=== PATIENT | female | born 1945 | race Caucasian/White ===

== ENCOUNTER 2019-02-25 06:59 | Day surgery (SDC) | payer MEDICARE, OTHER, SELFPAY ==
--- NOTE | 2019-02-21 09:48 | PM.PREOP ---
Pre-operative Note Interval Note History & Physical reviewed/Exam performed by Physician: Yes Changes to H&P: No
--- NOTE | 2019-02-21 09:49 | P.OP_ITS ---
Operative Date/Time/Diagnoses Date of procedure: 02/25/19 Time of procedure: 07:45 Procedure & Clinicians Procedure: Preoperative diagnoses: 1. Right signficant bruenescent nuclear sclerotic and cortical cataract. Postoperative diagnoses: 1. Cataract removed by phacoemulsification with placement of posterior chamber intraocular lens. Procedure: Phacoemulsification with posterior chamber intraocular lens implant Surgeon: Dianna Crawley MD Complications: None Specimen: None Implant: ZCBOO+21.0 Blood loss: None Anesthesia: Retrobulbar with monitored standby Description of procedure: Patient presents with a complaint of decreased vision due to cataract which is affecting activities of daily living. The patient wants surgery to improve vision. The patient was taken to the operating room and given IV sedation. A retrobulbar block insert consisting of 6 cc of 2% xylocaine without epinephrine mixed half and half with 0.5% Marcaine with 1 cc of hyaluronidase added is placed between the medial and lateral 1/3 of the inferior orbital rim. Lid akinesia is obtain with 1% xylocaine with epinephrine infiltrated along the lid margin. The eye is manually massaged for 30 sec, prepped using Betadine solution, and draped in the usual sterile fashion. Temporal approach was made, a 1 mm side-port incision was made 90? from the proposed clear corneal incision position. Phenylephrine 1.5% mixed with 1% xylocaine 0.2 cc was placed into the anterior chamber. Viscoat followed by Aidan was then placed. A 2.6 mm clear incision with a 2.6 mm blade was placed. A 360 degree capsulorrhexis style capsulotomy was then performed with a cystitome needle on a Healon. Hydrodelineation and hydrodissection were performed. The phacoemulsification unit is introduced, and sculpting notice used to groove the central lens. It is then removed in chopping mode. Epi nucleus is removed with epinuclear mode and irrigation aspiration was used to remove the peripheral cortex. The posterior capsule is polished. The intraocular lens is selected, inspected, power confirmed, and placed in the posterior chamber. The pupil was constricted with Miostat.. The wound was stromally hydrated and tested for leaks, there was none and it was left sutureless. Vigamox 0.1 cc was placed into the anterior chamber. Kenalog 0.2 cc was placed in the superior subconjunctival space. A drop of antibiotic and was placed and the eye was patched and shielded. The patient was stable and returned to the recovery room in excellent condition. Dictated by: Dianna Crawley MD Copy to: [facility]
[2019-02-25 07:15] VITALS: BP 119/59; PULSE 61; RESP 15; TEMP 36.4; O2SAT 98
[2019-02-25 07:17] VITALS: BMI 22.6
[2019-02-25] MEDS: PROPARACAINE 0.5% OPHTH SOL 2 DROPS EYE-OP (07:25)
[2019-02-25] MEDS: CATARACT EYE COMPOUND (10 DROPS/SYRINGE) 3 DROPS EYE-OP (07:27)
--- NOTE | 2019-02-25 07:56 | SUR.OPER ---
Supine on eye stretcher, head on extension cradle secured with tape. Arms tucked at sides with blanket. Pillow under knees.
[2019-02-25] MEDS: LIDOCAINE 2% 4 ML, BUPIVACAINE 0.5% (PF) 4 ML, HYALURONIDASE 150 UNIT INJ (08:00)
[2019-02-25] MEDS: LIDOCAINE 1% W/EPI INJ 20 ML INJ (08:08)
[2019-02-25] MEDS: MOXIFLOXACIN OPHTH DROPS 3 ML BOTTLE 2 DROPS INJ ×2 (08:09→08:10)
[2019-02-25] MEDS: TRIAMCINOLONE 50 MG/5 ML VIAL INJ (08:10)
[2019-02-25] MEDS: HYALURONATE SODIUM 10 MG/ML SYRINGE INJ (08:11)
[2019-02-25] MEDS: CHONDROIDTIN/SOD HYALURONATE 1.05 ML SYRINGE INTRAOCULA ×2 (08:11)
[2019-02-25] MEDS: NEOMYCIN/POLY/DEX OPHTH OINT 1 APPLIC EYE-RIGHT (08:12)
[2019-02-25] MEDS: CARBACHOL 1.5 ML VIAL INJ (08:12)
[2019-02-25] MEDS: OFLOXACIN 0.3% OPHTH 5 ML 2 DROPS EYE-RIGHT (08:13)
[2019-02-25] MEDS: BALANCED SALT IRRIG SOLN NO.2 500 ML, EPINEPHrine 1 MG IRR (08:13)
[2019-02-25] MEDS: PHENYLEPHRINE/LIDOCAINE VIAL (OR) 0.2 ML EYE-OP (08:30)
[2019-02-25 08:38] VITALS: BP 117/71; PULSE 56; RESP 15; TEMP 36.3; O2SAT 100
== END 2019-02-25 08:50 | disposition home or self-care (01) ==
LOC: OR 07:02
PROVIDERS: PCP Family Medicine; Visit Provider Ophthalmology
DX: H25.811 Combined forms of age-related cataract, right eye (principal)
CPT/HCPCS: J0171; J2704; J3301; J3470

== ENCOUNTER 2019-03-04 09:33 | Day surgery (SDC) | payer MEDICARE, OTHER, SELFPAY ==
--- NOTE | 2019-02-26 17:07 | PM.PREOP ---
Pre-operative Note Interval Note History & Physical reviewed/Exam performed by Physician: Yes Changes to H&P: No
--- NOTE | 2019-03-04 08:13 | PM.OP.1 ---
Operative Date/Time/Diagnoses Date of procedure: 03/04/19 Time of procedure: 10:45 Procedure & Clinicians Procedure: Preoperative diagnoses: 1. Left nuclear sclerotic and cortical cataract. Postoperative diagnoses: 1. Cataract removed by phacoemulsification with placement of posterior chamber intraocular lens. Procedure: Phacoemulsification with posterior chamber intraocular lens implant Surgeon: Dianna Crawley MD Complications: None Specimen: None Implant: ZCBOO+21.5 Blood loss: None Anesthesia: Retrobulbar with monitored standby Description of procedure: Patient presents with a complaint of decreased vision due to cataract which is affecting activities of daily living. The patient wants surgery to improve vision. The patient was taken to the operating room and given IV sedation. A retrobulbar block consisting of 6 cc of 2% xylocaine without epinephrine mixed half and half with 0.5% Marcaine with 1 cc of hyaluronidase added is placed between the medial and lateral 1/3 of the inferior orbital rim. Lid akinesia is obtain with 1% xylocaine with epinephrine infiltrated along the lid margin. The eye is manually massaged for 30 sec, prepped using Betadine solution, and draped in the usual sterile fashion. Temporal approach was made, a 1 mm side-port incision was made 90? from the proposed clear corneal incision position. Phenylephrine 1.5% mixed with 1% xylocaine 0.2 cc was placed into the anterior chamber. Viscoat followed by Aidan was then placed. A 2.6 mm clear incision with a 2.6 mm blade was placed. A 360 degree capsulorrhexis style capsulotomy was then performed with a cystitome needle on a Healon. Hydrodelineation and hydrodissection were performed. The phacoemulsification unit is introduced, and sculpting notice used to groove the central lens. It is then removed in chopping mode. Epi nucleus is removed with epinuclear mode and irrigation aspiration was used to remove the peripheral cortex. The posterior capsule is polished. The intraocular lens is selected, inspected, power confirmed, and placed in the posterior chamber. The pupil was constricted with Miostat.. The wound was stromally hydrated and tested for leaks, there was none and it was left sutureless. Vigamox 0.1 cc was placed into the anterior chamber. Kenalog 0.2 cc was placed in the superior subconjunctival space. A drop of antibiotic and was placed and the eye was patched and shielded. The patient was stable and returned to the recovery room in excellent condition. Dictated by: Dianna Crawley MD Copy to: [facility]
[2019-03-04] MEDS: PROPARACAINE 0.5% OPHTH SOL 2 DROPS EYE-OP (10:00)
[2019-03-04 10:01] VITALS: BP 127/67; PULSE 61; RESP 16; TEMP 37; O2SAT 99; BMI 22.8
[2019-03-04] MEDS: CATARACT EYE COMPOUND (10 DROPS/SYRINGE) 3 DROPS EYE-OP (10:02)
[2019-03-04] MEDS: CARBACHOL 1.5 ML VIAL INJ (11:13)
[2019-03-04] MEDS: BALANCED SALT IRRIG SOLN NO.2 15 ML IRR (11:13)
[2019-03-04] MEDS: HYALURONATE SODIUM 10 MG/ML SYRINGE INJ (11:14)
[2019-03-04] MEDS: LIDOCAINE 1% W/EPI INJ 20 ML INJ (11:14)
[2019-03-04] MEDS: CHONDROIDTIN/SOD HYALURONATE 1.05 ML SYRINGE INTRAOCULA (11:14)
[2019-03-04] MEDS: MOXIFLOXACIN OPHTH DROPS 3 ML BOTTLE 2 DROPS INJ (11:14)
[2019-03-04] MEDS: PHENYLEPHRINE/LIDOCAINE VIAL (OR) 0.2 ML EYE-OP (11:15)
[2019-03-04] MEDS: NEOMYCIN/POLY/DEX OPHTH OINT 1 APPLIC EYE-LEFT (11:15)
[2019-03-04] MEDS: OFLOXACIN 0.3% OPHTH 5 ML 2 DROPS EYE-LEFT (11:15)
[2019-03-04] MEDS: BALANCED SALT IRRIG SOLN NO.2 500 ML, EPINEPHrine 1 MG IRR (11:16)
[2019-03-04] MEDS: TRIAMCINOLONE 50 MG/5 ML VIAL INJ (11:16)
[2019-03-04] MEDS: LIDOCAINE 2% 4 ML, BUPIVACAINE 0.5% (PF) 4 ML, HYALURONIDASE 150 UNIT INJ (11:17)
[2019-03-04 11:53] VITALS: BP 139/80; PULSE 60; RESP 16; TEMP 36.8; O2SAT 100
== END 2019-03-04 12:04 | disposition home or self-care (01) ==
LOC: OR 09:37
PROVIDERS: PCP Family Medicine; Visit Provider Ophthalmology
DX: H25.812 Combined forms of age-related cataract, left eye (principal)
CPT/HCPCS: J0171; J2704; J3301; J3470

== ENCOUNTER → 2019-03-13 12:25 | Outpatient (CLI) | payer MEDICARE, OTHER, SELFPAY ==
--- NOTE | 2019-03-13 | DI.MG.S_ITS ---
BILATERAL DIGITAL SCREENING MAMMOGRAM 3D/2D WITH CAD: 03/13/2019 CLINICAL: Routine screening. Family history of breast cancer. Comparison is made to exams dated: 12/24/2017 mammogram, 10/23/2016 mammogram, and 09/06/2015 mammogram - [facility]. There are scattered fibroglandular elements in both breasts. Current study was also evaluated with a Computer Aided Detection (CAD) system. There are benign calcifications in both breasts. No significant masses, calcifications, or other findings are seen in either breast. There has been no significant interval change. IMPRESSION: There is no mammographic evidence of malignancy. A 1 year screening mammogram is recommended. This exam was interpreted at Station ID: [id number]. NOTE: For mammograms, a report in lay terms will be sent to the patient. Approximately 15% of breast malignancies will not be visualized mammographically. In the management of a palpable breast mass, a negative mammogram must not discourage biopsy of a clinically suspicious lesion. Electronically Signed By: Isaac gandhi/ethel:03/13/2019 13:01:08 copy to: SONYA SHAFFER letter sent: Normal Exam ACR BI-RADS Category 2: Benign Finding(s) [id number]
== END ==
PROVIDERS: PCP Family Medicine
DX: Z12.31 Encounter for screening mammogram for malignant neoplasm of breast (principal); Z80.3 Family history of malignant neoplasm of breast
CPT/HCPCS: 77063; 77067

== ENCOUNTER → 2019-08-13 14:15 | Outpatient (CLI) | payer MEDICARE, OTHER, SELFPAY | PROVIDERS: PCP Family Medicine | DX: Z13.820 Encounter for screening for osteoporosis (principal); M85.851 Other specified disorders of bone density and structure, right thigh; Z78.0 Asymptomatic menopausal state | CPT/HCPCS: 77080 ==

== ENCOUNTER → 2019-11-27 15:35 | Outpatient (CLI) | payer MEDICARE, OTHER, SELFPAY ==
[2019-11-27 16:21] LABS: Influenza A - CEPHEID Flu A NEGATIVE (NEGATIVE); Influenza B - CEPHEID Flu B NEGATIVE (NEGATIVE)
== END ==
PROVIDERS: PCP Student in an Organized Health Care Education/Training Program; Visit Provider Family Medicine
DX: R50.9 Fever, unspecified (principal)
CPT/HCPCS: 87502

== ENCOUNTER 2019-11-29 08:45 | Emergency (ER) | payer MEDICARE, OTHER, SELFPAY ==
[2019-11-29 09:07] VITALS: BP 114/65; PULSE 86; RESP 18; TEMP 37; O2SAT 96; BMI 22.2
--- NOTE | 2019-11-29 11:10 | DI.RAD.S_ITS ---
PROCEDURE: XR CHEST 2V INDICATIONS: r/o pneumonia TECHNIQUE: 2 views of the chest were acquired. COMPARISON: None. FINDINGS: Surgical changes and devices: None. Lungs and pleura: There is an area of consolidation identified on the lateral aspect of the left lung base, which is positioned posteriorly. Scarring within the lung apices is present. No large effusion or pneumothorax is identified. No overt heart failure. Mediastinum: Mediastinal contours are normal. Heart size is normal. There may be a calcified lymph node within the left hilum. Bones and chest wall: No suspicious bony abnormalities. Soft tissues appear unremarkable. IMPRESSION: Left basilar consolidation likely represents pneumonia. However, followup imaging in 3-4 weeks is recommended to document complete resolution and exclude an underlying mass. Dictated by: Chilo Wilcox M.D. on 11/29/2019 at 10:24 Approved by: Chilo Wilcox M.D. on 11/29/2019 at 10:25
[2019-11-29 11:21] LABS: Add Manual Diff / Slide Review NO; Basophils Absolute Auto 0 /uL (0-100); Basophils Percent Auto 0.2 % (0-2); Eosinophils Absolute Auto 0 /uL (0-450); Hematocrit 40.2 % (36-46); Hemoglobin 13.9 g/dL (12.0-16.0); Lymphocytes Absolute Auto 600 /uL (1100-4500); Lymphocytes Percent Auto 8.4 % (25-40); Mean Corpuscular HGB Conc 34.7 % (30-36); Mean Corpuscular Hemoglobin 31.6 PG (26-34); Monocytes Absolute Auto 400 /uL (0-900); Monocytes Percent Auto 5.4 % (3-14); Neutrophils Absolute Auto 6400 /uL (1500-7000); Platelet Count 191 X10^3/uL (150-400); Red Blood Cell Count 4.41 X10^6/uL (4.0-5.2); Red Cell Distribution Width 12.6 % (11.6-14.8); White Blood Cell Count 7.4 X10^3/uL (4.5-11.0)
[2019-11-29 11:23] VITALS: TEMP 37.9
[2019-11-29] MEDS: SODIUM CHLORIDE 0.9% 1,000 ML 1000 ML IV (11:23)
[2019-11-29] MEDS: ACETAMINOPHEN 325 MG TABLET 650 MG PO (11:23)
[2019-11-29 11:28] LABS: Blood Urea Nitrogen 9 mg/dL (7-17); Calcium 9.1 mg/dL (8.4-10.2); Carbon Dioxide 27 mmol/L (22-32); Chloride 94 mmol/L (98-107); Estimated Glomerular Filt Rate > 60.0 mL/min (>60); Glucose 125 mg/dL (80-110); HEMOLYSIS < 15 (0-50); Lactate (Lactic Acid) 0.9 mmol/L (0.7-2.1); Potassium 3.4 mmol/L (3.4-5.1); Sodium 130 mmol/L (137-145)
[2019-11-29] MEDS: KETOROLAC 60 MG/2 ML VIAL 30 MG IV (11:54)
--- NOTE | 2019-11-29 11:54 | ED_ITS ---
HPI - Fever <MORGAN Marte-BC - Last Filed: 11/29/19 16:10> General Chief Complaint: Fever Stated Complaint: fever, tested neg for flu Time Seen by Provider: 11/29/19 11:03 Source: patient and family Mode of arrival: Ambulatory Limitations: no limitations History of Present Illness HPI Narrative: The patient is a 74-year-old nonsmoker who drinks 3 or more drinks of wine per day who presents with her for chief complaint of fever. She saw a primary care provider on the and tested negative for the flu. She states she started feeling sick on the with cough and congestion. She states since her appointment 2 days ago she has had fevers up to 102, muscle aches, chills, fevers, malaise. She denies any nausea vomiting or abdominal pain. She denies any sore throat or ear pain. She complains of postnasal drip and congestion. Home modalities to feel better include Tylenol, NeilMed sinus rinse or Neti pot, Mucinex DM, rifq-xll-gvffozq measures. She is concerned that she might have pneumonia. She states she is sleeping a lot at home. Related Data Previous Rx's Medication Instructions Recorded amoxicillin-pot clavulanate 1 tab PO BID #14 tab 11/29/19 [Augmentin] benzonatate [Tessalon Perles] 100 mg PO BID-TID PRN #20 cap 11/29/19 doxycycline hyclate 100 mg PO BID #14 cap 11/29/19 Allergies Allergy/AdvReac Type Severity Reaction Status Date / Time No Known Drug Allergies Allergy Verified 11/27/19 15:25 Review of Systems <RODNEY Marte - Last Filed: 11/29/19 16:10> Review of Systems Narrative: GENERAL: see HPI HEENT: See HPI RESPIRATORY: See HPI CARDIOVASCULAR: Denies chest pain, palpitations, orthopnea, edema, GASTROINTESTINAL: Denies nausea, vomiting, abdominal pain, diarrhea, constipation, melena. : Denies dysuria, frequency, incontinence, hematuria, urinary retention. MUSCULOSKELETAL: denies weakness, joint pain, or bony pain SKIN: Denies rash, skin lesions, or other NEUROLOGIC: Denies weakness, headache, numbness, change in speech, confusion, seizures, incoordination. PSYCHIATRIC: No concerning psychosocial issues. 12 point review of systems is negative except for those stated above Patient History <ROD Marte - Last Filed: 11/29/19 16:10> Medical History (Updated 11/29/19 @ 13:05 by ROD Marte) Cough (Acute) Flu-like symptoms (Acute) Surgical History Status post hysterectomy Social History household members: spouse Smoking Status: Never smoker Smoking Status: Never smoker alcohol intake frequency: 3 or more drinks per day Alcohol type: wine Substance Use Type: does not use Exam <ROD Marte - Last Filed: 11/29/19 16:10> Narrative Exam Narrative: GENERAL: This is a well-nourished, well-developed patient, lying on stretcher wearing mass HEAD: Atraumatic. Normocephalic. No temporal or scalp tenderness. EYES: Pupils equal round and reactive. Extraocular motions intact. No scleral icterus. No injection or drainage. ENT: Nose without bleeding, purulent drainage or septal hematoma. Throat without erythema, tonsillar hypertrophy or exudate. Uvula midline. Airway patent. NECK: Trachea midline. No JVD or lymphadenopathy. Supple, nontender, no men ingeal signs. CARDIOVASCULAR: Regular rate and rhythm RESPIRATORY: Left lower posterior crackles to auscultation. Loose sounding cough throughout exam. Speaking full sentences. Not tri podding, no increased respiratory effort. Accessory muscle use. GASTROINTESTINAL: Abdomen soft, non-tender, nondistended. No hepato- splenomegaly, or palpable masses. No guarding. Active bowel sounds all 4 quad rants. EXTREMITIES: No clubbing, cyanosis, or edema. No joint tenderness, effusion, or edema noted. BACK: Nontender without deformity or crepitance. No flank tenderness. NEURO: AOx3. SKIN: No rash or erythema on visible skin Initial Vital Signs Initial Vital Signs: Vital Signs Temperature 98.6 F 11/29/19 09:07 Pulse Rate 86 11/29/19 09:07 Respiratory Rate 18 11/29/19 09:07 Blood Pressure 114/65 11/29/19 09:07 Pulse Oximetry 96 11/29/19 09:07 <Nila Maya MD - Last Filed: 11/29/19 18:54> Initial Vital Signs Initial Vital Signs: Vital Signs Temperature 98.6 F 11/29/19 09:07 Pulse Rate 86 11/29/19 09:07 Respiratory Rate 18 11/29/19 09:07 Blood Pressure 114/65 11/29/19 09:07 Pulse Oximetry 96 11/29/19 09:07 Scores <ROD Marte - Last Filed: 11/29/19 16:10> CURB-65 Confusion: No BUN >19mg/dL (>7mmol/L): No Respiratory rate greater or equal to 30: No SBP <90mmHg or DBP less or equal to 60mmHg: No Age 65 or Older: Yes CURB-65 Total: 1 Score 0-1 Outpatient care, Score 2 Inpt vs. Obs, Score 3 or over Inpt admit with ICU for score of 4-5 GCS Jose coma scale eye opening: Spontaneous Jose coma scale verbal response: Orientated [place] coma scale motor response: Obey commands [place] coma scale total score: 15 Course <ROD Marte - Last Filed: 11/29/19 16:10> Orders Ordered: ED Orders 11/29/19 11:07 Basic Metabolic Panel Stat Complete Blood Count AUTO DIFF Stat Lactate (Lactic Acid) Stat 11/29/19 11:10 XR chest 2V Stat 11/29/19 11:18 Procalcitonin Stat 11/29/19 11:41 RT Consult Eval and Treat NOW 11/29/19 12:01 Sputum Culture Stat 11/29/19 12:55 Blood Culture Stat Discontinued Medications Acetaminophen (Tylenol) 650 mg PO NOW ONE Stop: 11/29/19 11:15 Last Admin: 11/29/19 11:23 Dose: 650 mg Documented by: BASIL Amoxicillin/Clavulanate Potassium (Augmentin 875-125 Mg) 1 tab PO NOW ONE Stop: 11/29/19 12:39 Last Admin: 11/29/19 12:44 Dose: 1 tab Documented by: ROSALE Benzonatate (Tessalon Perles) 100 mg PO NOW ONE Stop: 11/29/19 12:39 Last Admin: 11/29/19 12:45 Dose: 100 mg Documented by: BASIL Doxycycline Hyclate (Vibramycin) 100 mg PO NOW ONE Stop: 11/29/19 12:39 Last Admin: 11/29/19 12:44 Dose: 100 mg Documented by: BASIL Sodium Chloride (Normal Saline 0.9%) 1,000 mls @ 1,000 mls/hr IV BOLUS ONE Stop: 11/29/19 12:13 Last Infusion: 11/29/19 12:16 Dose: 0 mls/hr Documented by: Admin: 11/29/19 11:23 Dose: 1,000 mls/hr Documented by: BASIL Ketorolac Tromethamine (Toradol) 30 mg IV NOW ONE Stop: 11/29/19 11:49 Last Admin: 11/29/19 11:54 Dose: 30 mg Documented by: BASIL Consultations Consultation #1: Respiratory therapist at bedside doing eval and treat, since the spirometer teaching Time: 11:54 Vital Signs Vital signs: Vital Signs - 8 hr 11/29/19 11:23 11/29/19 12:07 11/29/19 12:09 Temperature 100.2 F H 101.7 F H Pulse Rate 91 H 73 Respiratory Rate 16 14 Blood Pressure [Left Arm] 100/57 L Pulse Oximetry 97 98 11/29/19 12:16 11/29/19 12:17 Temperature 101.7 F H 101.7 F H Pulse Rate Respiratory Rate Blood Pressure [Left Arm] Pulse Oximetry <Nila Maya MD - Last Filed: 11/29/19 18:54> Orders Ordered: ED Orders 11/29/19 11:07 Basic Metabolic Panel Stat Complete Blood Count AUTO DIFF Stat Lactate (Lactic Acid) Stat 11/29/19 11:10 XR chest 2V Stat 11/29/19 11:18 Procalcitonin Stat 11/29/19 11:41 RT Consult Eval and Treat NOW 11/29/19 12:01 Sputum Culture Stat 11/29/19 12:55 Blood Culture Stat Discontinued Medications Acetaminophen (Tylenol) 650 mg PO NOW ONE Stop: 11/29/19 11:15 Last Admin: 11/29/19 11:23 Dose: 650 mg Documented by: BASIL Amoxicillin/Clavulanate Potassium (Augmentin 875-125 Mg) 1 tab PO NOW ONE Stop: 11/29/19 12:39 Last Admin: 11/29/19 12:44 Dose: 1 tab Documented by: BASIL Benzonatate (Tessalon Perles) 100 mg PO NOW ONE Stop: 11/29/19 12:39 Last Admin: 11/29/19 12:45 Dose: 100 mg Documented by: BASIL Doxycycline Hyclate (Vibramycin) 100 mg PO NOW ONE Stop: 11/29/19 12:39 Last Admin: 11/29/19 12:44 Dose: 100 mg Documented by: BASIL Sodium Chloride (Normal Saline 0.9%) 1,000 mls @ 1,000 mls/hr IV BOLUS ONE Stop: 11/29/19 12:13 Last Infusion: 11/29/19 12:16 Dose: 0 mls/hr Documented by: Admin: 11/29/19 11:23 Dose: 1,000 mls/hr Documented by: BASIL Ketorolac Tromethamine (Toradol) 30 mg IV NOW ONE Stop: 11/29/19 11:49 Last Admin: 11/29/19 11:54 Dose: 30 mg Documented by: BASIL Vital Signs Vital signs: Vital Signs - 8 hr 11/29/19 11:23 11/29/19 12:07 11/29/19 12:09 Temperature 100.2 F H 101.7 F H Pulse Rate 91 H 73 Respiratory Rate 16 14 Blood Pressure [Left Arm] 100/57 L Pulse Oximetry 97 98 11/29/19 12:16 11/29/19 12:17 Temperature 101.7 F H 101.7 F H Pulse Rate Respiratory Rate Blood Pressure [Left Arm] Pulse Oximetry MDM - Fever <NUNO MarteP-BC - Last Filed: 11/29/19 16:10> Lab Data Result diagrams: 11/29/19 11:07 11/29/19 11:07 Labs: Lab Results 11/29/19 11/29/19 11/29/19 Range/Units 11:07 11:07 11:07 WBC 7.4 (4.5-11.0) X10^3/uL RBC 4.41 (4.0-5.2) X10^6/uL Hgb 13.9 (12.0-16.0) g/dL Hct 40.2 (36-46) % MCV 91.0 (80-100) fL MCH 31.6 (26-34) PG MCHC 34.7 (30-36) % RDW 12.6 (11.6-14.8) % Plt Count 191 (150-400) X10^3/uL Neut % (Auto) 86.0 H (50-75) % Lymph % (Auto) 8.4 L (25-40) % [place] % (Auto) 5.4 (3-14) % Eos % (Auto) 0.0 L (2-4) % Baso % (Auto) 0.2 (0-2) % Neut # (Auto) 6400 (8673-0380) /uL Lymph # (Auto) 600 L (6705-1345) /uL [place] # (Auto) 400 (0-900) /uL Eos # (Auto) 0 (0-450) /uL Baso # (Auto) 0 (0-100) /uL Sodium 130 L (137-145) mmol/L Potassium 3.4 (3.4-5.1) mmol/L Chloride 94 L (98-107) mmol/L Carbon Dioxide 27 (22-32) mmol/L BUN 9 (7-17) mg/dL Creatinine 0.50 L (0.52-1.04) mg/dL Estimated GFR > 60.0 (>60) mL/min BUN/Creatinine Ratio 18.0 (6-22) Glucose 125 H (80-110) mg/dL Lactate 0.9 (0.7-2.1) mmol/L Calcium 9.1 (8.4-10.2) mg/dL Procalcitonin (<0.5) ng/mL 11/29/19 Range/Units 11:18 WBC (4.5-11.0) X10^3/uL RBC (4.0-5.2) X10^6/uL Hgb (12.0-16.0) g/dL Hct (36-46) % MCV (80-100) fL MCH (26-34) PG MCHC (30-36) % RDW (11.6-14.8) % Plt Count (150-400) X10^3/uL Neut % (Auto) (50-75) % Lymph % (Auto) (25-40) % [place] % (Auto) (3-14) % Eos % (Auto) (2-4) % Baso % (Auto) (0-2) % Neut # (Auto) (7627-9238) /uL Lymph # (Auto) (7682-4637) /uL [place] # (Auto) (0-900) /uL Eos # (Auto) (0-450) /uL Baso # (Auto) (0-100) /uL Sodium (137-145) mmol/L Potassium (3.4-5.1) mmol/L Chloride (98-107) mmol/L Carbon Dioxide (22-32) mmol/L BUN (7-17) mg/dL Creatinine (0.52-1.04) mg/dL Estimated GFR (>60) mL/min BUN/Creatinine Ratio (6-22) Glucose (80-110) mg/dL Lactate (0.7-2.1) mmol/L Calcium (8.4-10.2) mg/dL Procalcitonin 0.12 (<0.5) ng/mL Imaging Data Chest x-ray: Radiologist's Impression: [address] [address] XRay Report Signed Patient: Viri Villareal JMR#: [id number] : 7Acct:[id number] Age/Sex: 74 / FDate of Service: 11/29/19 Loc: ED Accession Number: [id number] Procedure: XR chest 2V Ordering Provider: Barbara Gordon PROCEDURE: XR CHEST 2V INDICATIONS: r/o pneumonia TECHNIQUE: 2 views of the chest were acquired. COMPARISON: None. FINDINGS: Surgical changes and devices: None. Lungs and pleura: There is an area of consolidation identified on the lateral aspect of the left lung base, which is positioned posteriorly. Scarring within the lung apices is present. No large effusion or pneumothorax is identified. No overt heart failure. Mediastinum: Mediastinal contours are normal. Heart size is normal. There may be a calcified lymph node within the left hilum. Bones and chest wall: No suspicious bony abnormalities. Soft tissues appear unremarkable. IMPRESSION: Left basilar consolidation likely represents pneumonia. However, followup imaging in 3-4 weeks is recommended to document complete resolution and exclude an underlying mass. Dictated by: Chilo Wilcox M.D. on 11/29/2019 at 10:24 Approved by: Chilo Wilcox M.D. on 11/29/2019 at 10:25 MDM Narrative Medical decision making narrative: The patient is a 74-year-old female who presents with a chief complaint of continued cough and congestion. She has been sick for 10 days, saw primary care provider on the . X-ray is concerning for left basilar pneumonia. She does not need admission as per curb 65 criteria. She was placed on Augmentin and doxycycline as per up-to-date community-acquired pneumonia algorithm. Discussed at length taking it with probiotic or yogurt, using a sunscreen with doxycycline. Discussed at length the importance of follow-up with primary care provider in the next few days. Also give prescription of Tessalon Perles. Discussed at length return precau tions of increased shortness of breath etc.. Patient was able to tolerate 1st dose of antibiotics well in the emergency department. Patient has been of no questions or concerns upon discharge and state understanding of return precautions as well as follow-up care. <Nila Maya MD - Last Filed: 11/29/19 18:54> Lab Data Labs: Lab Results 11/29/19 11/29/19 11/29/19 Range/Units 11:07 11:07 11:07 WBC 7.4 (4.5-11.0) X10^3/uL RBC 4.41 (4.0-5.2) X10^6/uL Hgb 13.9 (12.0-16.0) g/dL Hct 40.2 (36-46) % MCV 91.0 (80-100) fL MCH 31.6 (26-34) PG MCHC 34.7 (30-36) % RDW 12.6 (11.6-14.8) % Plt Count 191 (150-400) X10^3/uL Neut % (Auto) 86.0 H (50-75) % Lymph % (Auto) 8.4 L (25-40) % [place] % (Auto) 5.4 (3-14) % Eos % (Auto) 0.0 L (2-4) % Baso % (Auto) 0.2 (0-2) % Neut # (Auto) 6400 (7070-6914) /uL Lymph # (Auto) 600 L (8477-4884) /uL [place] # (Auto) 400 (0-900) /uL Eos # (Auto) 0 (0-450) /uL Baso # (Auto) 0 (0-100) /uL Sodium 130 L (137-145) mmol/L Potassium 3.4 (3.4-5.1) mmol/L Chloride 94 L (98-107) mmol/L Carbon Dioxide 27 (22-32) mmol/L BUN 9 (7-17) mg/dL Creatinine 0.50 L (0.52-1.04) mg/dL Estimated GFR > 60.0 (>60) mL/min BUN/Creatinine Ratio 18.0 (6-22) Glucose 125 H (80-110) mg/dL Lactate 0.9 (0.7-2.1) mmol/L Calcium 9.1 (8.4-10.2) mg/dL Procalcitonin (<0.5) ng/mL 11/29/19 Range/Units 11:18 WBC (4.5-11.0) X10^3/uL RBC (4.0-5.2) X10^6/uL Hgb (12.0-16.0) g/dL Hct (36-46) % MCV (80-100) fL MCH (26-34) PG MCHC (30-36) % RDW (11.6-14.8) % Plt Count (150-400) X10^3/uL Neut % (Auto) (50-75) % Lymph % (Auto) (25-40) % [place] % (Auto) (3-14) % Eos % (Auto) (2-4) % Baso % (Auto) (0-2) % Neut # (Auto) (6523-4847) /uL Lymph # (Auto) (0002-2252) /uL [place] # (Auto) (0-900) /uL Eos # (Auto) (0-450) /uL Baso # (Auto) (0-100) /uL Sodium (137-145) mmol/L Potassium (3.4-5.1) mmol/L Chloride (98-107) mmol/L Carbon Dioxide (22-32) mmol/L BUN (7-17) mg/dL Creatinine (0.52-1.04) mg/dL Estimated GFR (>60) mL/min BUN/Creatinine Ratio (6-22) Glucose (80-110) mg/dL Lactate (0.7-2.1) mmol/L Calcium (8.4-10.2) mg/dL Procalcitonin 0.12 (<0.5) ng/mL Discharge Plan Departure Patient Disposition: Home Clinical Impression: Pneumonia Qualifiers: Pneumonia type: due to unspecified organism Laterality: left Lung location: lower lobe of lung Qualified Code(s): J18.9 - Pneumonia, unspecified organism Discharge Date/Time: 11/29/19 13:09 Instructions: How to Use an Incentive Spirometer, DI for Pneumonia -- Adult, DI for Fever (Symptom) -- Adult Activity Restrictions/Additional Instructions: Today we found that you have pneumonia. I have sent prescriptions of 2 di fferent antibiotics to [facility] in [place]. I also sent a prescription of Tessalon Perles to help with cough. Please use the incentive spirometer in breathing instructions provided by respiratory therapist. Please rest and push fluids. Use [id number] medications as needed and able. Please come back to the emergency department for any acute concerns such as severe shortness of breath Please follow-up with primary care provider the next few days. Prescriptions: New doxycycline hyclate 100 mg capsule 100 mg PO BID Qty: 14 RF: 0 amoxicillin-pot clavulanate [Augmentin] 875-125 mg tablet 1 tab PO BID Qty: 14 RF: 0 benzonatate [Tessalon Perles] 100 mg capsule 100 mg PO BID-TID PRN (Reason: cough) Qty: 20 RF: 0 Referrals: Fantasma Briones MD [Primary Care Provider] -
[2019-11-29 12:02] LABS: Procalcitonin 0.12 ng/mL (<0.5)
[2019-11-29 12:07] VITALS: BP 100/57; PULSE 91; RESP 16; TEMP 38.7; O2SAT 97
[2019-11-29 12:09] VITALS: PULSE 73; RESP 14; O2SAT 98
[2019-11-29 12:16] VITALS: TEMP 38.7
[2019-11-29 12:17] VITALS: TEMP 38.7
[2019-11-29] MEDS: DOXYCYCLINE HYCLATE 100 MG TABLET PO (12:44)
[2019-11-29] MEDS: AMOXICILLIN/CLAV 875/125 MG 1 TAB PO (12:44)
[2019-11-29] MEDS: BENZONATATE 100 MG CAPSULE PO (12:45)
== END 2019-11-29 13:09 | disposition home or self-care (01) ==
PROVIDERS: Emergency Provider Nurse Practitioner Family; PCP Student in an Organized Health Care Education/Training Program
DX: J18.9 Pneumonia, unspecified organism (principal)
CPT/HCPCS: 36415; 71046; 80048; 83605; 84145; 85025; 87040; 87070; 87205; 96361; 96374; 99284; 99285; J1885

== ENCOUNTER → 2020-05-09 08:40 | Outpatient (CLI) | payer MEDICARE, OTHER, SELFPAY ==
--- NOTE | 2020-05-09 | DI.MG.S_ITS ---
BILATERAL DIGITAL SCREENING MAMMOGRAM 3D/2D WITH CAD WITH AXILLARY TAIL ADDITIONAL VIEWS: 05/09/2020 CLINICAL: Routine screening. Family history of breast cancer. Comparison is made to exams dated: 03/13/2019 mammogram, 12/24/2017 mammogram, 10/23/2016 mammogram, 09/06/2015 mammogram, 08/24/2014 mammogram, and 08/19/2013 mammogram - [facility]. The tissue of both breasts is heterogeneously dense. This may lower the sensitivity of mammography. Current study was also evaluated with a Computer Aided Detection (CAD) system. There are benign calcifications in both breasts. No significant masses, calcifications, or other findings are seen in either breast. There has been no significant interval change. IMPRESSION: There is no mammographic evidence of malignancy. A 1 year screening mammogram is recommended. This exam was interpreted at Station ID: [id number]. NOTE: For mammograms, a report in lay terms will be sent to the patient. Approximately 15% of breast malignancies will not be visualized mammographically. In the management of a palpable breast mass, a negative mammogram must not discourage biopsy of a clinically suspicious lesion. Electronically Signed By: Dean enriquez/tehel:05/09/2020 09:03:26 copy to: Fantasma Medel letter sent: Normal Exam ACR BI-RADS Category 2: Benign Finding(s) [id number]
== END ==
PROVIDERS: PCP Student in an Organized Health Care Education/Training Program
DX: Z12.31 Encounter for screening mammogram for malignant neoplasm of breast (principal); Z80.3 Family history of malignant neoplasm of breast
CPT/HCPCS: 77063; 77067

== ENCOUNTER → 2020-05-30 08:10 | Outpatient (CLI) | payer MEDICARE, OTHER, SELFPAY ==
[2020-05-30 09:43] LABS: Add Manual Diff / Slide Review NO; Basophils Absolute Auto 0 /uL (0-100); Basophils Percent Auto 0.5 % (0-2); Eosinophils Absolute Auto 300 /uL (0-450); Eosinophils Percent Auto 5.1 % (2-4); Hematocrit 39.6 % (36-46); Hemoglobin 13.3 g/dL (12.0-16.0); Lymphocytes Absolute Auto 2000 /uL (1100-4500); Mean Corpuscular HGB Conc 33.5 % (30-36); Mean Corpuscular Hemoglobin 31.7 PG (26-34); Mean Corpuscular Volume 94.7 fL (80-100); Monocytes Absolute Auto 600 /uL (0-900); Monocytes Percent Auto 10.4 % (3-14); Neutrophils Absolute Auto 2600 /uL (1500-7000); Platelet Count 228 X10^3/uL (150-400); Red Blood Cell Count 4.19 X10^6/uL (4.0-5.2); Red Cell Distribution Width 13.2 % (11.6-14.8); White Blood Cell Count 5.5 X10^3/uL (4.5-11.0)
[2020-05-30 10:08] LABS: Carbon Dioxide 30 mmol/L (22-32); Chloride 102 mmol/L (98-107); HEMOLYSIS < 15 (0-50); Potassium 4.2 mmol/L (3.4-5.1); Sodium 136 mmol/L (137-145)
== END ==
PROVIDERS: PCP Student in an Organized Health Care Education/Training Program; Referring Provider Orthopaedic Surgery; Visit Provider Orthopaedic Surgery
DX: Z01.818 Encounter for other preprocedural examination (principal); Z01.812 Encounter for preprocedural laboratory examination
CPT/HCPCS: 36415; 80051; 85025; 93005; 93010

== ENCOUNTER → 2020-06-19 11:22 | Outpatient (CLI) | payer MEDICARE, OTHER, SELFPAY ==
[2020-06-20 20:28] LABS: COVID19 Sendout Not Detected (Not Detect)
== END ==
PROVIDERS: PCP Student in an Organized Health Care Education/Training Program; Visit Provider Nurse Practitioner
DX: Z11.59 Encounter for screening for other viral diseases (principal)
CPT/HCPCS: 87635

== ENCOUNTER 2020-06-22 07:50 | Day surgery (SDC) | payer MEDICARE, OTHER, SELFPAY ==
[2020-06-09 08:13] VITALS: BMI 22.2
[2020-06-22] VITALS (12 sets, daily range): BP systolic 102–153; BP diastolic 44–89; PULSE 57–89; RESP 13–18; TEMP 36–37.4; O2SAT 95–100; BMI 22.2
--- NOTE | 2020-06-22 | DI.RAD.S_ITS ---
PROCEDURE: XR KNEE RT 1TO2V INDICATIONS: POST OP TECHNIQUE: 2 view(s) of the knee acquired. COMPARISON: [facility] [place], CR, XR KNEE ARTHRITIC SERIES RT, 03/30/2019, 15:32. FINDINGS: Bones: Patient is status post knee joint arthroplasty. Hardware components are in expected positions. Visualized bony structures are intact. Soft tissues: Overlying postoperative changes are noted. IMPRESSION: Expected postsurgical change for right knee arthroplasty. Dictated by: Margo Humphrey MD, PhD on 06/22/2020 at 10:57 Approved by: Margo Humphrey MD, PhD on 06/22/2020 at 10:58
[2020-06-22] MEDS: LACTATED RINGERS 1,000 ML 42 ML IV (08:25)
--- NOTE | 2020-06-22 08:40 | PM.PREOP ---
Pre-operative Note COVID-19 COVID-19 status: Negative Result date/Date tested (Pos, Neg/Pending): 06/19/20 Interval Note History & Physical reviewed/Exam performed by Physician: Yes Changes to H&P: No
--- NOTE | 2020-06-22 08:45 | P.OP_ITS ---
Operative Date/Time/Diagnoses Date of procedure: 06/22/20 Pre-op diagnosis: Right knee osteoarthritis Post-op diagnosis: same Procedure & Clinicians Procedure: Right total knee arthroplasty Same procedure as scheduled: Yes Indications: The patient presents today for total knee arthroplasty after failure of conservative treatment. The nature of the procedure including the risks and benefits, alternatives, postoperative course and expected outcome were discussed and all questions answered. Consent was obtained. Operative site confirmed and marked. Surgeon: Papito Tellez Corporate Travel Expert: Rayo Gilliam Operative Notes Prosthetic devices, grafts, tissues, transplants, or devices: Jason Persona TKA 9 CR femoral component, E stemmed tibial component, 10 MC polyethylene tray and 32 mm all poly patella. Procedure in detail: The patient was taken to the operative suite and placed under anesthesia. The patient was given prophylactic antibiotics prior to surgery. The patient was also given tranexamic acid, 1 g, just prior to surgery for postoperative hemostasis. The lateral knee was prepped and the joint injected with 20 mL of 1% Lidocaine with epinephrine. The knee was then prepped and draped in usual sterile fashion. The leg was exsanguinated with an Esmarch dressing and the tourniquet raised to 250 torr. A 15 cm anterior incision was made. Next a medial trivector arthrotomy was made. The extensor mechanism was marked to ensure accurate repair. Initial exposing dissection was carried out medially and laterally. The knee was then flexed and the intramedullary femoral guide kishan placed. The distal femoral cut was made in 5? of valgus at the +2 position. The femoral size was measured and the appropriate cutting block was then placed and the anterior, posterior and chamfer cuts made. The intramedullary tibial alignment kishan was then placed. The guide was set to remove approximately 8 mm from the less affected medial side. The proximal tibial cut was then made with an oscillating saw. All meniscus and bony debris was then removed. Posterior femoral osteophytes removed with a curved osteotome. Flexion extension gaps were checked. The knee was slightly tight laterally as expected from her alignment. This was corrected releasing the lateral capsule with a pie crust technique using a 15 blade. The soft tissues were then injected with a combination of 20 mL of half percent Marcaine with epinephrine and 20 mL of Exparel. The trial components were then placed. The knee was then extended and the patellar thickness was measured and a cut made removing approximately 9 mm of bone. The patella was then sized and drilled. Some excess lateral bone was excised and the patellofemoral ligament released. The knee went into full extension and flexion beyond 130?. There was excellent medial-lateral balance throughout motion. Patellar tracking was excellent. The trial components were removed and the knee was cleansed with Pulsavac irrigation and dried. The final components were cemented with high viscosity vacuum mixed bone cement with antibiotics. The joint was filled with a dilute Betadine solution. The knee was held in extension and the patellar clamped until the cement was adequately cured. The knee was then irrigated. The extensor mechanism was closed with 5 interrupted #1 Vicryl sutures and a running Quill suture at approximately 90 degrees of flexion. The joint was then injected with a combination of 1 g of tranexamic acid and 20 mL of quarter percent Marcaine with epinephrine. The subcutaneous tissue was closed with 2 0 Vicryl. The skin was closed with absorbable subcuticular sutures and surgical adhesive. An Aquacel dressing and Stephen wrap were then applied. The patient tolerated the procedure well and was returned to recovery room in good condition. Post-operative Plan for aftercare: [facility] Protocol.
[2020-06-22] MEDS: CEFAZOLIN 2 GM/100 ML FROZ.PIGGY IV ×2 (08:56→17:25)
[2020-06-22] MEDS: LIDOCAINE 1% W/EPI 20 ML INJ (09:00)
[2020-06-22] MEDS: TRANEXAMIC ACID 1,000 MG VIAL 1000 MG IV (09:05)
--- NOTE | 2020-06-22 09:19 | SUR.OPER ---
Supine on padded OR bed. Pillow under head, arms secured on padded armboards <90 degree abduction. Safety belt across torso. Non-operative leg secured with tape over blanket over lower leg. Operative leg secured in DeMayo/Mathew positioner. Foam padded brace at thigh of operative leg.
[2020-06-22] MEDS: ACETAMINOPHEN IV 1,000 MG/100 ML VIAL 400 MG IV (09:25)
[2020-06-22] MEDS: BUPIVACAINE 0.25% W/ EPI (PF) 40 ML, BUPIVACAINE LIPOSOME 266 MG, SODIUM CHLORIDE 0.9% ... INJ (09:55)
[2020-06-22] MEDS: SODIUM CHLORIDE IRRIG SOLUTION 250 ML, POVIDONE-IODINE SPONGE STICKS 1 APPLIC IRR (09:56)
[2020-06-22] MEDS: BUPIVACAINE 0.25% W/ EPI (PF) 20 ML, TRANEXAMIC ACID 1,000 MG, SODIUM CHLORIDE 0.9% 10 ML INJ (09:59)
--- NOTE | 2020-06-22 10:57 | SUR.PHASEI ---
Stable PACU stay report to Carolyne, pt left in stable condition with dileep neal. Bed low locked, call stahl in reach. O2 added via nasal cannula as pt became sleepy but easily arousable.
[2020-06-22] MEDS: LACTATED RINGERS 1,000 ML 100 ML IV ×2 (12:36→21:04)
[2020-06-22] MEDS: IBUPROFEN 400 MG TABLET PO ×3 (12:36→21:05)
[2020-06-22] MEDS: OXYCODONE IR 5 MG TABLET PO (12:36)
[2020-06-22] MEDS: HYDROMORPHONE 0.5 MG INJ 0.2 MG IV (13:26)
--- NOTE | 2020-06-22 13:50 | PT.IPTN ---
Current Diagnoses Unilateral primary osteoarthritis, right knee (06/22/20) Surgery Performed Operation Date: 06/22/20 08:45 Actual Procedures p Total Knee Arthroplasty(Right) - Papito Tellez MD Physical Therapy Treatment Note M3 PT-IP Subjective Start: 06/22/20 14:01 Freq: NEEDED Status: Active Protocol: Document 06/22/20 13:50 AB (Rec: 06/22/20 14:05 AB [id number]) Subjective Physical Therapy Visit Type Type Patient Refusal Notes attempted PT eval. Pt c/o 6/ 10 pain and nurse stated that pt is still in a lot of pain and pain meds was given already. pt stated that she does not want to miss PT but is just having a lot of pain and is feeling shaky at this time. obtained PLOF and home set up from pt and spouse. post-op folder also provided. will f/u tomorrow. pt agreed to do PT tomorrow.
[2020-06-22] MEDS: ACETAMINOPHEN 325 MG TABLET 650 MG PO ×2 (14:28→21:04)
[2020-06-22] MEDS: HYDROMORPHONE 2 MG TABLET PO ×3 (14:28→22:43)
--- NOTE | 2020-06-22 15:35 | PT.IIE ---
Current Diagnoses Unilateral primary osteoarthritis, right knee (06/22/20) Surgery Performed Operation Date: 06/22/20 08:45 Actual Procedures p Total Knee Arthroplasty(Right) - Papito Tellez MD Surgical History (Last Updated 06/09/20 @ 08:24 by Shana Betancourt RN) History of arthroplasty of left knee (Acute 2012) History of colonoscopy (Acute) Hx of bilateral cataract extraction (Acute 02/2019) Status post hysterectomy Medical History (Last Updated 06/09/20 @ 08:24 by Shana Betancourt RN) Arthritis (Acute) Bacterial lobar pneumonia (Acute 11/2019) Hearing impaired (Acute) Ocular migraine (Acute) Physical Therapy Inpatient Evaluation/Re-Eval M1 PT/OT-IP Prior Functional Status Start: 06/22/20 14:01 Freq: NEEDED Status: Active Protocol: Document 06/22/20 15:35 AB (Rec: 06/22/20 16:47 AB [email or web address]) Medical Review Prior Functional Status Medical History Reviewed Yes Communication able to make needs known Mobility and Gait pt stated that she is independent with all mobilities and ambulation without AD Social History Household Members spouse Living Arrangements House Number of Floors (Floors) Two Floors Number of Stairs To Enter/Railing? pt will stay on main level of the house with hospital bed; has 16 steps to bedroom level with L rail ascending has a ramp to enter Home Environment Standard Height Toilet,Walk in Shower,Ramp Home Equipment Front Wheel Walker,Straight Cane,Raised Toilet Seat Without Armrests,Shower Seat without Backrest,Hand Held Shower,Hospital Bed M2 PT-IP Current Condition Start: 06/22/20 14:01 Freq: NEEDED Status: Active Protocol: Document 06/22/20 15:35 AB (Rec: 06/22/20 16:47 AB [email or web address]) Physical Therapy Current Condition Current Condition Evaluation Date 06/22/20 Treatment Diagnosis s/p R TKA; difficulty in walking Onset Date 06/22/20 Weight Bearing Status Weight Bearing Status Weight Bear as Tolerated Allowed Weight Bearing Amount (enter % RLE WBAT or #) (%) M3 PT-IP Subjective Start: 06/22/20 14:01 Freq: NEEDED Status: Active Protocol: Document 06/22/20 15:35 AB (Rec: 06/22/20 16:47 AB [email or web address]) Subjective Physical Therapy Visit Type Type Initial Evaluation Visit Start Time 15:35 Visit Stop Time 16:11 Total Visit Minutes 36 Number of AUDIO VIDEO TECH Visits 0 Physical Therapy Visit Comments Patient Comments requesting to use the toilet Therapy Pain Assessment Pain When Pain Assessed At Rest Pain Present Pain Present Pain Reported Location Right Knee Intensity 3 Scale Used Numeric (0 - 10) Pain Management Techniques Apply Cold,Distraction, Modification of Treatment,Re- positioning,Timing of Activity with Medications M4 PT-IP Mobility and Gait Start: 06/22/20 14:01 Freq: NEEDED Status: Active Protocol: Document 06/22/20 15:35 AB (Rec: 06/22/20 16:47 AB [id number]) PT-Bed Mobility Assessment Supine to Sit Supine to Sit Standby Assistance Sit to Supine Sit to Supine Standby Assistance Scooting Scooting to Edge of Bed Standby Assistance PT-Transfer Assessment Sit to and From Stand Sit to and from Stand Minimal Assistance,1 Person Assistance,Use of Upper Extremities Equipment Transfer Assistive Device Gait Belt,Front Wheeled Walker Orthotic/Prosthetic Devices or Brace: No Transfers Transfer Destination Bedside Commode Transfer Technique Stand Step Pivot Transfer Ability Level of Assist Minimal Assistance,1 Person Assistance,Use of Upper Extremities Comments Mobility Comments BP: 131/69 . completed supine to sit SBA and was able to sit on EOB SBA. completed sit to stand min A and cues for R quads activation. completed step transfer to bedside commode min A using FWW. pt was able to do hygiene care sitting with set up. completed sit to stand from bedside commode min A and ambulated ~ 3 ft using FWW min A and stated that she has to sit down due to feeling very shaky. pt gets easily anxious and confirmed and pt stated that she gets shaky due to anxiety and when she is afraid . pt wanted to just go back to bed. completed sit to supine SBA. positioned on the bed. call light and table placed within reach. informed pt and spouse regarding needed skids on posterior legs of walker and options. spouse stated that he can put tennis ball on it. Gait Assessment Gait Gait Assistance Required: Minimum Assistance Distance (Feet) 3 Able to Maintain Weight Bearing Status Yes During Gait Assistive Devices Assistive Device Gait Belt,Front Wheeled Walker Orthotic/Prosthetic Devices or Brace: No Gait Deviations General Gait Pattern Antalgic,Step-to Gait Factors Limiting Gait Function Factors Limiting Gait Function Decreased Activity Tolerance, Decreased Strength,Limited Range of Motion,Pain,Poor Balance,Poor Safety Awareness PT-Balance Assessment Sitting Balance and Reactions Static Sitting Balance Ability Good Dynamic Sitting Balance Ability Good Standing Balance and Reactions Static Standing Balance Ability Fair Dynamic Standing Balance Ability Fair Device Used FWW M5 PT-IP Objective Assessments Start: 06/22/20 14:01 Freq: NEEDED Status: Active Protocol: Document 06/22/20 15:35 AB (Rec: 06/22/20 16:47 AB [email or web address]) Orientation Orientation/Cognition Level of Alertness Alert Orientation Name,Place,Situation Memory Description No Deficits Noted Gross Range of Motion Lower Extremity ROM Assessment Right Impaired Impairments R knee flexion: ~ 60 deg Strength Lower Extremity Strength Assessment Right Impaired Hip 4-/5 Knee 3+/5 Coordination Assessment Gross Coordination Gross Coordination WNL Sensation Assessment Sensation Gross Sensation WNL Muscle Tone Muscle Tone WNL Yes M6 PT-IP Treatment Start: 06/22/20 14:01 Freq: NEEDED Status: Active Protocol: Document 06/22/20 15:35 AB (Rec: 06/22/20 16:47 AB [email or web address]) Physical Therapy Treatment Exercises Exercises Heel Slides Education Education Provided Precautions,Weight Bearing Status,Post-Op Packet,Safety M7 PT-IP Assessment and Plan Start: 06/22/20 14:01 Freq: NEEDED Status: Active Protocol: Document 06/22/20 15:35 AB (Rec: 06/22/20 16:47 AB [email or web address]) PT Summary Assessment and Plan Potential Rehabilitation Potential Good Status of Condition at Evaluation Evolving Summary Impairments Pain,ROM,Strength,Balance, Coordination,Sensation,Tone, Cognition,Bed Mobility, Transfers,Gait,Activity Tolerance Assessment Summary pt requiring min A with mobility but with decrease activity tolerance. pt just had surgery this morning and will likely progress during hospital stay. pt plans to go home with spouse to assist her and is set up for outpt PT . pt plans to stay on main level of the house and has a ramp to enter but spouse stated that it might be a good idea to see if pt can do stairs. informed pt that we' ll see how she feels tomorrow and if she wants to do stairs and she is appropriate, PT will assist pt with stair climbing training. pt agreed. will continue to assess pt's progress. Goals Bed Mobility Goal Independent Transfer Goal Independent,Front Wheeled Walker Gait Goal Independent,Front Wheel Walker Gait Distance 200 Other Goals up/down 16 steps L rail SBA Days to Meet Goals 5 Frequency of Treatment Frequency Of Treatment Twice a Day Treatment Plan Physical Therapy Treatment Plan Bed Mobility Training,Transfer Training,Gait Training, Therapeutic Exercise,Balance Retraining,Post Op Education, Discharge Planning,Hot or Cold Pack,Neuromuscular Re-ed, Coordination Retraining,Manual Therapy Recommendations To Nursing Amount of Assist Needed 1 Person Assist Discharge Recommendations PT Discharge Recommendations Home with Assistance, Outpatient PT Transportation Needs at Discharge Private Vehicle
--- NOTE | 2020-06-22 16:16 | PC.NURSE ---
Addendum entered by Dori Pandey R.N. 06/22/20 21:51: Incentive spirometry encouraged and pt reminded of use and rationale for use. Addendum entered by Dori Pandey R.N. 06/22/20 21:49: Mostly sleeping, but when awake is wide awake. Assist x 2 to commode to void. No longer tremulous. Reports pain to right knee 2-3/10. Requests to be awoken for pain meds @ 2230. Spouse rooming in on cot by window overnight. Original Note: Pt reports pain to right knee much improved with po dilaudid administration. Rates pain 2-3/10. P.T. in to mobilize pt to commode. Pt is tremulous with activity, but states this is due to anxiety, not pain. Denies nausea. Vital signs remain stable during mobilization and following. Declines to sit up in recliner. Back to bed as pt expresses desire to sleep. BL calf scd's replaced. Pt admits to full sensation to BL LE's. Stephen wrap dry and intact to right knee. Ice to knee. Bed alarm set and call light available.
[2020-06-22] MEDS: DOCUSATE 100 MG CAPSULE PO (21:05)
[2020-06-22] MEDS: ASPIRIN EC 81 MG TABLET PO (21:05)
--- NOTE | 2020-06-23 | PC.NURSE ---
Pt. declined to wear her SCd's states I don't like the sound of the machine when it squeezed my legs. Instructed to ankle wave x10 while she's awake. Will cont. POC & monitor.
[2020-06-23] MEDS: IBUPROFEN 400 MG TABLET PO ×3 (00:59→08:14)
[2020-06-23] MEDS: CEFAZOLIN 2 GM/100 ML FROZ.PIGGY IV (00:59)
[2020-06-23] MEDS: HYDROMORPHONE 2 MG TABLET PO ×3 (02:28→10:35)
[2020-06-23 04:54] VITALS: BP 139/49; PULSE 76; RESP 16; TEMP 36.7; O2SAT 100
[2020-06-23 06:09] LABS: Hematocrit 32.4 % (36-46)
--- NOTE | 2020-06-23 06:43 | PM.PNPO.1 ---
Subjective Subjective Date Patient Seen: 06/23/20 Time Patient Seen: 07:13 Interval history: The patient is progressing well. Pain is well controlled. Feels ready for discharge today. Exam Vital Signs (past 8 hours): - 06/22/20 23:32 06/23/20 04:54 Temperature 99.4 F 98.0 F Pulse Rate 80 76 Respiratory Rate 16 16 Blood Pressure 115/71 139/49 L Pulse Oximetry 99 100 Oxygen Delivery Method Room Air Oxygen Flow Rate 0 Narrative Exam Narrative: The dressing is intact. There is expected swelling. The leg is neurovascularly intact. Objective Labs Result Diagrams: 06/23/20 05:50 Labs: Laboratory Results - last 24 hr 06/23/20 05:50 Hgb 11.0 L Hct 32.4 L Assessment & Plan Post-op Postoperative Procedures: Procedures Operation Date: 06/22/20 08:45 Actual Procedures Side Surgeon p Total Knee Arthroplasty Right Papito Tellez MD Postoperative day: 1 Postoperative plan narrative: The patient is progressing as expected postop day 1 total knee arthroplasty. Will discharge to home today. [facility] Protocol. Daily knee range of motion exercises at home. Will start physical therapy within the next week. May leave dressing on for 7-14 days if intact. May shower over dressing. Follow up in 2 weeks. Time Spent With Patient Time with patient: less than 15 minutes Quality VTE Deep Vein Thrombosis/Pulmonary Embolism Present on Admission: No
[2020-06-23 07:32] VITALS: BP 120/65; PULSE 72; RESP 18; TEMP 37.3; O2SAT 100
[2020-06-23] MEDS: ACETAMINOPHEN 325 MG TABLET 650 MG PO (08:13)
[2020-06-23] MEDS: SODIUM CHLORIDE 0.9% FLUSH 10 ML IV (08:14)
[2020-06-23] MEDS: ASPIRIN EC 81 MG TABLET PO (08:14)
[2020-06-23] MEDS: DOCUSATE 100 MG CAPSULE PO (08:14)
--- NOTE | 2020-06-23 09:04 | CM.DANOTE ---
DCP: Case received, EMR reviewed and met with patient. , Yehuda, was also present in room. Was able to obtain information from patient regarding her baseline activity status prior to surgery. DCP assessment completed with information currently available. Patient is a 75 year old female who admitted yesterday morning to the care of the orthopedist team. PCP: Dr. Briones. Payer: confirmed: Medicare/[employer]. Patient came to the hospital for a surgical procedure. She had right total knee arthroplasty. Patient has had history of chronic pain secondary to osteoarthritis. Met with patient and in room. Patient was sitting up in bed, alert and oriented. Confirmed that she has been independent at home. She has a hospital bed on the main level, so she will not have to go up the stairs. Patient also mentioned that she has outpatient P.T. set up as well. P: DCP to continue to follow for any needs. She will be working with P.T. as well. Patient should be able to go home when she is medically stable and cleared by P.T. Rose Marie Rust RN/Sales And Service Advisor
--- NOTE | 2020-06-23 09:32 | PT.IPTN ---
Current Diagnoses Unilateral primary osteoarthritis, right knee (06/22/20) Surgery Performed Operation Date: 06/22/20 08:45 Actual Procedures p Total Knee Arthroplasty(Right) - Papito Tellez MD Physical Therapy Treatment Note M2 PT-IP Current Condition Start: 06/22/20 14:01 Freq: NEEDED Status: Discharge Protocol: Document 06/23/20 09:07 TP (Rec: 06/23/20 14:47 TP [email or web address]) Physical Therapy Current Condition Current Condition Evaluation Date 06/22/20 Treatment Diagnosis s/p R TKA; difficulty in walking Onset Date 06/22/20 Weight Bearing Status Weight Bearing Status Weight Bear as Tolerated Allowed Weight Bearing Amount (enter % RLE WBAT or #) (%) M3 PT-IP Subjective Start: 06/22/20 14:01 Freq: NEEDED Status: Discharge Protocol: Document 06/23/20 09:07 TP (Rec: 06/23/20 14:47 TP [email or web address]) Subjective Physical Therapy Visit Type Type Treatment Note Visit Start Time 09:07 Visit Stop Time 09:32 Total Visit Minutes 25 Notes Student CHAR Whyte supervised by CHAR Odonnell. Spouse present during tx and educated to provide safe assistance upon discharge. Number of MITER SAWYER Visits 1 Physical Therapy Visit Comments Patient Comments Pt feeling better with minimal pain. Therapy Pain Assessment Pain When Pain Assessed At Rest Pain Present Pain Present Pain Reported Location Right Knee Intensity 2 Scale Used Numeric (0 - 10) Pain Management Techniques Apply Cold,Distraction, Modification of Treatment,Re- positioning,Timing of Activity with Medications M4 PT-IP Mobility and Gait Start: 06/22/20 14:01 Freq: NEEDED Status: Discharge Protocol: Document 06/23/20 09:07 TP (Rec: 06/23/20 14:47 TP [email or web address]) PT-Bed Mobility Assessment Supine to Sit Supine to Sit Standby Assistance Scooting Scooting to Edge of Bed Standby Assistance PT-Transfer Assessment Sit to and From Stand Sit to and from Stand Standby Assistance,Contact Guard Assistance,1 Person Assistance,Use of Upper Extremities Equipment Transfer Assistive Device Gait Belt,Front Wheeled Walker Orthotic/Prosthetic Devices or Brace: No Transfers Transfer Destination Chair Transfer Technique Stand Step Pivot Transfer Ability Level of Assist Contact Guard Assistance,1 Person Assistance,Use of Upper Extremities Comments Mobility Comments Pt supine in bed with respiratory therpapist and respiratory student present checking vitals upon arrival. Pt agreeable to participate in PT. Supine to sit EOB SBA. Gait belt donned via spouse. Sit<>stand FWW, CGA. Pt able to weightbear through BLE. Swelling present in R LE. Ambulation into hallway to stairs FWW CGA with verbal cues for heel-toe gait. Pt education for safe ascent/ descent of stairs. Caregiver training for safe assist on stairs. Pt ascend/descend 3 juan c x2 L rail (ascending) R [employer] with step to gait pattern. Ambulation to room FWW, CGA for total of approximately 50' during tx without rest break. Verbal cues for R knee flexion. Stand to sit in chair FWW CGA. Pt education regarding importance of ther ex to prevent DVT and maintain strength. Positioned upright in chair, knees flexed, with ice on R knee. Call light and all other needs within reach. Spouse present with pt when left. Gait Assessment Gait Gait Assistance Required: Contact Guard Assist,1 Person Assist Distance (Feet) 50 Able to Maintain Weight Bearing Status Yes During Gait Assistive Devices Assistive Device Gait Belt,Front Wheeled Walker Orthotic/Prosthetic Devices or Brace: No Gait Deviations General Gait Pattern Antalgic,Step-to Gait Factors Limiting Gait Function Factors Limiting Gait Function Decreased Activity Tolerance, Decreased Strength,Limited Range of Motion,Pain,Poor Balance,Poor Safety Awareness Comments Gait Comments See mobility comments Stair Climbing Assessment Evaluation Level of Assist On Stairs Contact Guard Assistance Devices Stair Climbing Assistive Devices Right Railing Technique/Endurance Stair Climbing Direction Ascend and Descend Stair Climbing Technique Step to Step Number of Steps Climbed 3 Stair Climbing Set # Repetitions (reps) 2 Comments Stair Climbing Comments see mobility comments PT-Balance Assessment Sitting Balance and Reactions Static Sitting Balance Ability Good Dynamic Sitting Balance Ability Good Standing Balance and Reactions Static Standing Balance Ability Fair Dynamic Standing Balance Ability Fair Device Used FWW M5 PT-IP Objective Assessments Start: 06/22/20 14:01 Freq: NEEDED Status: Discharge Protocol: Document 06/22/20 15:35 AB (Rec: 06/22/20 16:47 AB [email or web address]) Orientation Orientation/Cognition Level of Alertness Alert Orientation Name,Place,Situation Memory Description No Deficits Noted Gross Range of Motion Lower Extremity ROM Assessment Right Impaired Impairments R knee flexion: ~ 60 deg Strength Lower Extremity Strength Assessment Right Impaired Hip 4-/5 Knee 3+/5 Coordination Assessment Gross Coordination Gross Coordination WNL Sensation Assessment Sensation Gross Sensation WNL Muscle Tone Muscle Tone WNL Yes M6 PT-IP Treatment Start: 06/22/20 14:01 Freq: NEEDED Status: Discharge Protocol: Document 06/23/20 09:07 TP (Rec: 06/23/20 14:47 TP [email or web address]) Physical Therapy Treatment Exercises Exercises Ankle Pumps,Quad Sets,Heel Slides,Seated Knee Flexion/ Extension Education Education Provided Weight Bearing Status,Safety M7 PT-IP Assessment and Plan Start: 06/22/20 14:01 Freq: NEEDED Status: Discharge Protocol: Document 06/23/20 09:07 TP (Rec: 06/23/20 14:47 TP [email or web address]) PT Summary Assessment and Plan Potential Rehabilitation Potential Good Status of Condition at Evaluation Evolving Summary Impairments Pain,ROM,Strength,Balance, Coordination,Sensation,Tone, Cognition,Bed Mobility, Transfers,Gait,Activity Tolerance Assessment Summary Pt functional mobility improving, requiring CGA and verbal cues for functional mobility. Pt demonstrates safe use of FWW and ability to ascend/descend stairs with CGA and handrail. Pt has ramp to enter house, so will not need to navigate stairs upon entry. Pt's pain increases from 2/10 to 3/10 in standing, but heel-toe gait pattern improved with duration. Pt clear to discharge home with assistance when medically stable. Recommending outpatient PT to improve strength, endurance, and activity tolerance to return to PLOF. Goals Bed Mobility Goal Independent Transfer Goal Independent,Front Wheeled Walker Gait Goal Independent,Front Wheel Walker Gait Distance 200 Other Goals up/down 16 steps L rail SBA Days to Meet Goals 5 Frequency of Treatment Frequency Of Treatment Twice a Day Treatment Plan Physical Therapy Treatment Plan Bed Mobility Training,Transfer Training,Gait Training, Therapeutic Exercise,Balance Retraining,Post Op Education, Discharge Planning,Hot or Cold Pack,Neuromuscular Re-ed, Coordination Retraining,Manual Therapy Other Recommendations and Next Treatment Stair management, step through Focus gait pattern. Ther ex for improved strength, endurance, activity tolerance. Pt is safe to discharge home with assistance when medically stable. Continue PT with outpatient. Recommendations To Nursing Amount of Assist Needed 1 Person Assist Discharge Recommendations PT Discharge Recommendations Home with Assistance, Outpatient PT Transportation Needs at Discharge Private Vehicle
[2020-06-23 10:32] VITALS: O2SAT 96
== END 2020-06-23 11:15 | disposition home or self-care (01) ==
LOC: OR 07:53 → AC 07:54
PROVIDERS: PCP Student in an Organized Health Care Education/Training Program; Referring Provider Student in an Organized Health Care Education/Training Program; Visit Provider Orthopaedic Surgery
PROC: 0SRC0JZ Replacement of Right Knee Joint with Synthetic Substitute, Open Approach (ICD-10-PCS; CPT 27447; principal; 2020-06-22 08:45)
DX: M17.11 Unilateral primary osteoarthritis, right knee (principal); G43.909 Migraine, unspecified, not intractable, without status migrainosus
CPT/HCPCS: 27447; 36415; 73560; 85014; 85018; 97116; 97162; 97530; C1776; C9290; J0131; J0690; J1100; J1170; J2250; J2405; J2704; J3010

== ENCOUNTER → 2022-08-08 08:03 | Outpatient (CLI) | payer MEDICARE, OTHER, SELFPAY ==
[2022-08-07 11:24] VITALS: BMI 22.2
--- NOTE | 2022-08-08 | DI.MG.S_ITS ---
BILATERAL DIGITAL SCREENING MAMMOGRAM 3D/2D WITH CAD: 08/08/2022 CLINICAL: Routine screening. Family history of breast cancer. Comparison is made to exams dated: 07/11/2021 mammogram - [facility], 05/09/2020 mammogram, 03/13/2019 mammogram, 12/24/2017 mammogram, and 10/23/2016 mammogram - [facility]. There are scattered areas of fibroglandular density in both breasts (category b / 25%-50% glandular tissue). Current study was also evaluated with a Computer Aided Detection (CAD) system. There are benign calcifications in both breasts. No significant masses, calcifications, or other findings are seen in either breast. There has been no significant interval change. IMPRESSION: BENIGN There is no mammographic evidence of malignancy. A 1 year screening mammogram is recommended. Based on the Tyrer Cuzick model (a risk assessment model) the patient's lifetime risk is 8.4% and her 10 year risk is 8.4%. According to the ACR, ACS, and NCCN guidelines, an annual breast MRI exam along with mammogram is recommended if the patient's lifetime risk is 20% or greater. This exam was interpreted at Station ID: [id number]. NOTE: For mammograms, a report in lay terms will be sent to the patient. Approximately 15% of breast malignancies will not be visualized mammographically. In the management of a palpable breast mass, a negative mammogram must not discourage biopsy of a clinically suspicious lesion. Electronically Signed By: Dean enriquez/ethel:08/08/2022 13:07:54 copy to: Fantasma Medel letter sent: Normal Exam ACR BI-RADS Category 2: Benign Finding(s) [id number]
== END ==
PROVIDERS: PCP Student in an Organized Health Care Education/Training Program; Referring Provider Student in an Organized Health Care Education/Training Program; Visit Provider Student in an Organized Health Care Education/Training Program
DX: Z12.31 Encounter for screening mammogram for malignant neoplasm of breast (principal); Z80.3 Family history of malignant neoplasm of breast
CPT/HCPCS: 77063; 77067

== ENCOUNTER → 2022-09-20 09:05 | Outpatient (CLI) | payer MEDICARE, OTHER, SELFPAY ==
[2022-08-07 11:24] VITALS: BMI 22.2
[2022-09-21 11:50] LABS: Fecal Immunochemical Test Negative (Negative)
== END ==
PROVIDERS: PCP Student in an Organized Health Care Education/Training Program; Referring Provider Student in an Organized Health Care Education/Training Program; Visit Provider Student in an Organized Health Care Education/Training Program
DX: Z12.11 Encounter for screening for malignant neoplasm of colon (principal)
CPT/HCPCS: 82274

== ENCOUNTER → 2022-12-21 11:17 | Outpatient (CLI) | payer MEDICARE, OTHER, SELFPAY ==
[2022-08-07 11:24] VITALS: BMI 22.2
== END ==
PROVIDERS: PCP Student in an Organized Health Care Education/Training Program; Referring Provider Student in an Organized Health Care Education/Training Program; Visit Provider Student in an Organized Health Care Education/Training Program
DX: Z78.0 Asymptomatic menopausal state (principal); M85.851 Other specified disorders of bone density and structure, right thigh; Z92.23 Personal history of estrogen therapy; Z90.710 Acquired absence of both cervix and uterus
CPT/HCPCS: 77080

== ENCOUNTER → 2023-08-13 12:59 | Outpatient (CLI) | payer MEDICARE, OTHER, SELFPAY ==
[2022-08-07 11:24] VITALS: BMI 22.2
--- NOTE | 2023-08-13 | DI.MG.S_ITS ---
BILATERAL DIGITAL SCREENING MAMMOGRAM 3D/2D WITH CAD: 08/13/2023 CLINICAL: Routine screening. Family history of breast cancer. Comparison is made to exams dated: 08/08/2022 mammogram - [facility], 07/11/2021 mammogram - [facility], and 05/09/2020 mammogram - [facility]. There are scattered areas of fibroglandular density in both breasts (category b / 25%-50% glandular tissue). Current study was also evaluated with a Computer Aided Detection (CAD) system. There are benign calcifications in both breasts. No significant masses, calcifications, or other findings are seen in either breast. There has been no significant interval change. IMPRESSION: BENIGN There is no mammographic evidence of malignancy. A 1 year screening mammogram is recommended. Based on the Tyrer Cuzick model (a risk assessment model) the patient's lifetime risk is 7.7% and her 10 year risk is 0.0%. According to the ACR, ACS, and NCCN guidelines, an annual breast MRI exam along with mammogram is recommended if the patient's lifetime risk is 20% or greater. This exam was interpreted at Station ID: [id number]. NOTE: For mammograms, a report in lay terms will be sent to the patient. Approximately 15% of breast malignancies will not be visualized mammographically. In the management of a palpable breast mass, a negative mammogram must not discourage biopsy of a clinically suspicious lesion. Electronically Signed By: Yudy manrique/ethel:08/13/2023 16:32:23 copy to: Fantasma Medel letter sent: Normal Exam ACR BI-RADS Category 2: Benign Finding(s) [id number]
== END ==
PROVIDERS: PCP Family Medicine; Referring Provider Family Medicine; Visit Provider Family Medicine
DX: Z12.31 Encounter for screening mammogram for malignant neoplasm of breast (principal); Z80.3 Family history of malignant neoplasm of breast
CPT/HCPCS: 77063; 77067

== ENCOUNTER → 2024-09-08 16:23 | Outpatient (CLI) | payer MEDICARE, OTHER, SELFPAY ==
[2022-08-07 11:24] VITALS: BMI 22.2
--- NOTE | 2024-09-08 16:24 | DI.MG.S_ITS ---
BILATERAL DIGITAL SCREENING MAMMOGRAM 3D/2D WITH CAD: 09/08/2024 CLINICAL: Routine screening. Family history of breast cancer. Comparison is made to exams dated: 08/13/2023 mammogram, 08/08/2022 mammogram - [facility], and 07/11/2021 mammogram - [facility]. There are scattered areas of fibroglandular density (category b / 25%-50% glandular tissue). Current study was also evaluated with a Computer Aided Detection (CAD) system. No significant masses, calcifications, or other findings are seen in either breast. There has been no significant interval change. IMPRESSION: NEGATIVE There is no mammographic evidence of malignancy. A 1 year screening mammogram is recommended. Based on the Tyrer Cuzick model (a risk assessment model) the patient's lifetime risk is 7.0% and her 10 year risk is 0.0%. According to the ACR, ACS, and NCCN guidelines, an annual breast MRI exam along with mammogram is recommended if the patient's lifetime risk is 20% or greater. This exam was interpreted at Station ID: [id number]. NOTE: For mammograms, a report in lay terms will be sent to the patient. Approximately 15% of breast malignancies will not be visualized mammographically. In the management of a palpable breast mass, a negative mammogram must not discourage biopsy of a clinically suspicious lesion. Electronically Signed By: Carolina Almodovar M.D., Ph.D. gerard/ethel:09/10/2024 17:06:22 copy to: NHAN CHANG letter sent: Normal Exam ACR BI-RADS Category 1: Negative
== END ==
LOC: MAMMO 16:24
PROVIDERS: PCP Family Medicine; Referring Provider Family Medicine; Visit Provider Family Medicine
DX: Z12.31 Encounter for screening mammogram for malignant neoplasm of breast (principal); Z80.3 Family history of malignant neoplasm of breast
CPT/HCPCS: 77063; 77067

== ENCOUNTER → 2025-10-28 13:19 | Outpatient (CLI) | payer MEDICARE, OTHER, SELFPAY ==
[2022-08-07 11:24] VITALS: BMI 22.2
--- NOTE | 2025-10-28 13:19 | DI.MG.S_ITS ---
MM screening mammo BI: 10/28/2025. BI-RADS: 1 CLINICAL: 80-year old female for bilateral screening mammogram. Tyrer-Cuzick lifetime risk of 3.3%. Current reported family history of breast cancer: mother, sister and maternal aunt. PRIOR EXAMS 09/08/2024, 08/13/2023, 08/08/2022, 07/11/2021. MAMMOGRAPHY TECHNIQUE: 2D and 3D (tomosynthesis) digital mammographic views obtained, with additional images as needed for full coverage. Current study was also evaluated with a Computer Aided Detection (CAD) system. DENSITY B. There are scattered areas of fibroglandular density. MAMMOGRAPHY FINDINGS Bilateral: No suspicious mass, asymmetry, microcalcification, or other abnormality seen. IMPRESSION: * No evidence of malignancy. RECOMMENDATIONS Bilateral * Annual screening mammography. OVERALL ASSESSMENT CATEGORY BI-RADS-1: Negative. The [employer] recommends annual screening mammography beginning at age 40 for women with average risk of breast cancer. ELECTRONICALLY SIGNED: Isaac Fox M.D. on 10/28/2025 at 09:56:36 PM PT Interpreting Station ID: [id number]
== END ==
PROVIDERS: PCP Family Medicine; Referring Provider Family Medicine; Visit Provider Family Medicine
DX: Z12.31 Encounter for screening mammogram for malignant neoplasm of breast (principal); Z80.3 Family history of malignant neoplasm of breast
CPT/HCPCS: 77063; 77067